=== PATIENT | male | born 1940 | race Caucasian/White ===

== ENCOUNTER 2020-11-21 15:42 | Outpatient (REF) | payer MEDICARE, SELFPAY ==
[2020-11-21 21:55] LABS: Abs Immature Grans 0.02 10^3/uL (0.0-0.06); Absolute Basophil Count 0.14 10^3/uL (0.0-0.2); Absolute Eosinophil Count 0.35 10^3/uL (0.0-0.7); Absolute Lymphocyte Count 2.13 10^3/uL (1.2-3.4); Absolute Monocyte Count 0.61 10^3/uL (0.1-0.8); Absolute Neutrophil Count 3.57 10^3/uL (1.2-6.7); Basophils % 2.1; Eosinophils % 5.1; HCT 44.8 % (40.0-50.0); HGB 14.8 g/dL (13.5-17.5); Immature Grans % 0.3; Lymphocytes % 31.2; MCH 32.2 pg (27.0-33.0); MCV 97.6 fL (80-95); MPV 10.8 fL (8.0-11.0); Monocytes % 8.9; Neutrophils % 52.4; Nucleated RBC 0 %; Platelet Count 204 10^3/uL (130-400); RBC 4.59 10^6/uL (4.36-5.78); RDW 12.4 % (11.8-14.1); WBC 6.82 10^3/uL (4.4-10.8)
[2020-11-21 22:16] LABS: ALT 22 U/L (16-63); AST 14 U/L (15-37); Albumin 3.6 g/dL (3.4-5.0); Alkaline Phosphatase 81 U/L (46-116); BUN 22 mg/dL (7-18); Bilirubin, Total 0.9 mg/dL (0.2-1.0); Calcium 8.4 mg/dL (8.5-10.1); Chloride 107 mmol/L (98-107); Estimated GFR 58.26 (mL/min/1.73m2); Glucose 77 mg/dL (74-106); Potassium 4.6 mmol/L (3.5-5.1); Sodium 143 mmol/L (136-145); TSH (W/Ref FT4) 4.85 uIU/mL (0.36-3.74); Total Protein 6.6 g/dL (6.4-8.2)
[2020-11-21 22:39] LABS: FREE T4 0.91 ng/dL (0.76-1.46)
== END 2020-11-21 16:02 ==
LOC: NCHCN 15:42
PROVIDERS: PCP Specialist/Technologist Athletic Trainer; Visit Provider Family Medicine
DX: I48.0 Paroxysmal atrial fibrillation (principal); R60.0 Localized edema
CPT/HCPCS: 80053; 83735; 84439; 84443; 85025

== ENCOUNTER 2021-08-03 08:10 | Emergency (ER) | payer MEDICARE, SELFPAY ==
[2021-08-03] VITALS (34 sets, daily range): BP systolic 110–175; BP diastolic 70–92; PULSE 45–72; RESP 14–27; TEMP 36.1–36.2; O2SAT 94–100
--- NOTE | 2021-08-03 08:00 | RT.EKG_ITS ---
APPROVED REPORT Exam: Resting ECG Reason for Exam: dizziness Patient Location: E HR:58 bpm ECG Measurements Heart Rate 58 AXIS FL [id number] P [id number] QRSd 150 QRS 90 QT 468 T 0 QTc 462 Conclusion Atrial fibrillation...V-rate 48- 67, Right bundle branch block
--- NOTE | 2021-08-03 08:30 | W.ED.GENAD ---
Discharge Plan Disposition Patient Disposition: HOME Condition: Fair Discharge Details Clinical Impression: Dizziness, Carotid occlusion, right, Headache Primary Care Provider: Macario Martinez ED Provider: Vera Leger Home Meds and New Rx's Prescriptions: New atorvastatin 20 mg tablet 20 mg PO DAILY Qty: 20 RF: 0 meclizine 25 mg tablet 25 mg PO TID PRN (Reason: dizziness) Qty: 10 RF: 0 Continued atenolol 25 MG tablet 12.5 mg PO DAILY RF: 0 Xarelto 20 mg Tablet 20 mg PO DAILY RF: 0 Discharge Instructions Instructions: Dizziness (ED), General Headache (ED) Additional Instructions: Your imaging and labs here are significant for blockage of your right carotid artery. However, this is likely an old finding. I am concerned that your dizziness may be associated with vertigo. Alternatively, this could also be something more serious and will be further evaluated with your MRI/MRV as we discussed. This test should be completed on Thursday or Thursday. Our care management team will reach out to you regarding follow-up and testing. You may also touch base with Dr. Larios about this. Please take the atorvastatin daily as prescribed to help prevent this from worsening. This was advised by neurology team at [facility]. Please also continue with your Xarelto. Also prescribe meclizine if you have any recurrence of your dizziness. Please encourage hydration. Please avoid strenuous activity. Please return immediately with any new or worsening symptoms. Referrals: Fransisco Larios MD [ [facility] STAFF PHYSICIAN] - Discharge Data Discharge Date/Time-TO BE ENTERED AT DEPARTURE: 08/03/21 13:08 Medical Decision Making Patient is a pleasant 81-year-old gentleman presenting today with chief complaint of dizziness. He reports that 1 week ago he jumped over a brook and had a sudden onset of symptoms. His description sounds vertiginous with spinning, nausea. Denies any headache or neck pain. No fevers or chills. States that since then these have been intermittent brought on by movement of his head. Particularly worse this morning. States this woke him from sleep. He states that he was [place] by EMS when leaving the house and that this seemed to resolve his symptoms. He is not currently endorsing any dizziness. Nausea has resolved. Denies any fevers or chills. He denies any chest pain but indicates the far left lateral chest wall is area that he did have brief discomfort. He attributed this to muscle spasm as he is working on prior with. No shortness of breath. Past medical history is pertinent for CVA, hypertension. Patient was recently diagnosed with atrial fibrillation and is on Xarelto. No new medications or change in dosing recently. On exam, patient appears nontoxic. Neurologic exam is normal. Unable to elicit any nystagmus. However, patient is currently asymptomatic and symptoms are not elicited with movement. Patient is irregularly irregular. No murmurs rubs or gallops appreciated. Concerned at this time for posterior circulation stroke. Also considered electrolyte abnoramlity, metabolic derangement, vertebral artery dissection vs. other. Will obtain CTA, labs and continue to monitor. Labs reviewed. No leukocytosis. Stable H&H. No significant abnormality on CMP. TSH slightly low at 5.28. Will obtain free T4. Patient just back from [place]. Concerned that when the patient laid flat he developed a severe frontal headache and felt lightheaded. This did resolve after a few minutes being more upright. CT reviewed by radiologist: FINDINGS: Brain: There is an area of encephalomalacia in the right frontal lobe indicating remote infarct. There is no evidence for large acute cortical infarct. A tiny calcified granuloma is present in the high right frontal lobe. No intracranial hemorrhage or extraaxial collection is identified. There is no significant intracranial mass effect. Cerebral ventricles: The ventricles and sulci are mildly prominent, in concordance with mild global atrophy. Paranasal sinuses: There is moderate chronic mucosal disease of the right maxillary sinus, with calcifications suggesting inspissation. Minor chronic disease involves the left maxillary sinus. The right frontal sinus is with mild chronic mucosal disease as well. Mastoid air cells: Visualized mastoid air cells are well aerated. Bones/joints: Unremarkable. No acute fracture. Soft tissues: Unremarkable. IMPRESSION: No CT evidence for acute intracranial abnormality Will obtain CTA head/neck. CT reviewed by radiologist: COMPARISON: CT HEAD WO 08/03/2021 9:10 AM FINDINGS: ANTERIOR CIRCULATION: Right internal carotid artery: Occluded. Right middle cerebral artery: Normal. Right anterior cerebral artery: Normal. Left internal carotid artery: Calcification is present but there is no occlusion or significant stenosis. Left middle cerebral artery: Normal. Left anterior cerebral artery: Normal. POSTERIOR CIRCULATION: Right vertebral artery: Normal. Left vertebral artery: Normal. Basilar artery: Normal. Right posterior cerebral artery: Normal. Left posterior cerebral artery: Normal. Brain: Known/previously described chronic right frontal encephalomalacia due to remote infarct. No abnormal brain parenchymal or leptomeningeal contrast enhancement. Cerebral ventricles: No ventriculomegaly. Bones/joints: Intact. No suspicious lesions. Mastoid air cells: Clear. Soft tissues: Unremarkable. Paranasal sinuses: Right maxillary sinus mucosal thickening with some intermixed calcifications. Right maxillary mucoperiosteal calcification. Mild right frontal mucosal thickening without fluid level. IMPRESSION: 1. Right ICA occlusion. 2. Known old right frontal infarct. 3. Right maxillary sinusitis with chronic features. COMPARISON: CT HEAD WO 08/03/2021 9:10 AM FINDINGS: Limitations: Suboptimal angiographic imaging quality. This significantly limits the ability to detect dissection and limits the ability to assess degree of stenosis. Right common carotid artery: No occlusion or significant stenosis. Atherosclerosis approaching the carotid bulb. Right internal carotid artery: Severe atherosclerosis at the carotid bulb and extending into the origins of the right internal carotid artery which appears occluded and its course cannot be identified in the right neck. Right external carotid artery: Normal. Left common carotid artery: No occlusion. Atherosclerosis approaching the carotid bulb. Left internal carotid artery: Carotid bulb calcification and calcification in the proximal vessel with there is stenosis estimated to not exceed 50%. Left external carotid artery: Normal. Right vertebral artery: Focal calcification at the C4/5 level without significant stenosis. Left vertebral artery: Normal. Left vertebral artery: Normal. Brachiocephalic artery: Mild calcification without significant stenosis. Normal caliber. Subclavian arteries: Mild calcification without significant stenosis. Normal caliber. Aorta: Mild calcification without significant stenosis. Normal caliber. Veins: Unremarkable Brain: The incompletely viewed brain is normal. Mastoid air cells: Clear. Thyroid: Normal. Lymph nodes: No adenopathy. Soft tissues: No masses. Bones/joints: No fracture or concerning stenosis. IMPRESSION: 1. 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 2. Left carotid atherosclerosis with approximately 50% stenosis at the origins of the left ICA. Discussed these findings with patient and . Will consult with vascular surgery at [facility]. Images pushed to their facility. Consulted with Dr. Marcus. She recommended 20mg Atorvastatin. Advised that this has likely been occluded for years. Recommended MR/MRV next week with PCP. Advised that once this is back, they should again be consulted. Patient ambulated in the room and did well. He and I did discuss the concern about the possiblility of fall. We discuss in patient admission and patient declines. He would like to be at home to move more. Feels that movement ultimately helps with his symptoms. His will be home. She will monitor him. Advised to return with any new/worsening symptoms. Will start on statin. He will continue with anticoagulation. All of their questions and concerns were addressed, they are in agreement with this plan. Have asked care management to help arrange for f/u for urgent MRI/MRV. HPI General Mode of arrival: EMS. Date/Time Provider Initiated Documentation: 08/03/21 09:19. Limitations to Documentation: no limitations. Information obtained by: patient, EMS and RN notes reviewed. History of Present Illness 81 year old M presents to the emergency department with the chief complaint of dizziness, described as severe and similar to prior episodes, with intensity rated at 1 (no pain). Quality is described as other (dizziness), and is localized to the head. Patient reports no radiation. Patient started experiencing this week(s) (1) and it has been intermittent. Immobilization improves symptom(s), Movement worsens symptoms . Patient notes nausea/vomiting (nausea with the dizziness, no vomiting. Resolved with zofran via EMS); denies chest pain, cough, diaphoresis, fever/chills, headaches, loss of appetite, rash, seizure, shortness of breath, syncope and weakness. Patient did receive the following treatments prior to arrival, other (zofran) Related Data Home Medications Medication Instructions Recorded Confirmed atenolol 12.5 mg PO DAILY 06/25/18 08/03/21 Xarelto 20 mg PO DAILY 08/03/21 08/03/21 atorvastatin 20 mg PO DAILY #20 tab 08/03/21 meclizine 25 mg PO TID PRN #10 tab 08/03/21 Previous Rx's Medication Instructions Recorded atorvastatin 20 mg PO DAILY #20 tab 08/03/21 meclizine 25 mg PO TID PRN #10 tab 08/03/21 Allergies Allergy/AdvReac Type Severity Reaction Status Date / Time erythromycin base Allergy Mild Unverified 08/03/21 09:41 ibuprofen Allergy Mild Unverified 08/03/21 09:41 Sulfa (Sulfonamide Allergy Mild Unverified 08/03/21 09:41 Antibiotics) General Stated Complaint: Dizzy/Sync SIMÓN: 3 Review of Systems Constitutional Constitutional: Reports as per HPI, Denies chills, Denies fever(s), Denies frequent falls, Denies headache(s) and Denies weakness Eyes Eyes: Reports as per HPI, Denies blurry vision and Denies change in vision ENT Ears, Nose, Mouth, and Throat: Reports vertigo, Reports dizziness, Denies headache(s) and Denies neck pain Cardiovascular Cardiovascular: Reports as per HPI, Denies chest pain, Denies lightheadedness, Denies radiating jaw, neck or arm pain, Denies dyspnea and Denies dyspnea on exertion Respiratory Respiratory: Reports as per HPI, Denies chest congestion, Denies cough, Denies dyspnea, Denies dyspnea on exertion, Denies stridor and Denies wheezing Gastrointestinal Gastrointestinal: Reports as per HPI, Denies abdominal pain, Denies change in bowel habits, Denies nausea and Denies vomiting Musculoskeletal Musculoskeletal: Reports as per HPI, Denies back pain, Denies myalgias, Denies muscle cramps, Denies neck pain and Denies numbness Integumentary/Breasts Skin/Breast: Reports as per HPI and Denies rash Neurologic Neurologic: Reports as per HPI, Denies abnormal movements, Denies abnormal speech, Denies behavioral changes, Denies confusion, Reports vertigo, Reports dizziness, Denies frequent falls, Denies headache(s), Denies localized weakness, Denies numbness, Denies sensory deficit and Denies weakness Psychiatric Psychiatric: Denies behavioral changes and Denies confusion Allergic/Immunologic Allergic/Immunologic: Denies wheezing [facility] Medical History Abdominal bloating CVA (cerebral vascular accident) HTN (hypertension) Low back pain Popliteal cyst left Social History Smoking/Tobacco Use Status: Never Smoking risk assessment performed?: Yes Alcohol Intake: never Drug use: Never Substance use type: does not use Do you feel safe at home: Yes Do you feel safe in your relationship?: Yes Exam Const General: cooperative, healthy appearing, comfortable, no acute distress, well developed and well groomed Nutritional Appearance: average body habitus and well nourished Orientation: alert, awake and oriented x3 [facility] Head: normal to inspection, no palpable skull fracture, normocephalic and atraumatic Ears: hearing grossly normal bilaterally, external ears normal and TM's normal bilaterally General nose exam: external nose normal Mouth: oral mucosae normal and moist mucous membranes Throat: posterior oropharynx normal Eyes General: appearance normal, both eyes and all related structures Alignment and Position: alignment normal Periorbital: periorbital findings normal Eyelids: eyelids normal Sclera: sclerae normal Cornea: corneas normal Pupils: PERRL EOM: EOM intact bilaterally Neck Neck: normal visual inspection, full ROM, no lymphadenopathy and no meningeal signs Resp Effort & Inspection: normal respiratory effort, able to speak in complete sentences and no respiratory distress Auscultation: clear to auscultation bilaterally, no rales, no rhonchi and no wheezes Cardio Rate: regular rate Rhythm: abnormal rhythm irregularly irregular Heart Sounds: S1 normal and S2 normal GI Inspection: normal to inspection and non-distended Palpation: soft, no guarding and nontender Percussion: normal to percussion Auscultation: normal bowel sounds Skin General skin exam: no rashes or lesions noted Neuro General: patient alert, patient awake and patient oriented x3 Cranial Nerves: CN's II-XI intact bilaterally, PERRL, accommodation normal, EOM intact bilaterally, no nystagmus, facial strength normal, tongue midline, hearing normal, able to rotate head bilaterally and able to elevate shoulders bilaterally Cognition: normal cognition Speech: speech normal Motor: muscle tone normal throughout, strength 5/5 throughout, no pronator drift, no movement abnormalities noted and no fasciculations Sensory Exam: no sensory deficits noted Coordination: [id number] test normal and [id number] test normal Extrem General: normal to inspection, capillary refill normal, no pedal edema and no calf tenderness Psych Appearance: grossly normal and well kempt Mental Status: mental status grossly normal Speech and Movement: speech and movement normal Course Vital Signs Vital signs: Vital Signs Temperature 36.1 C L 08/03/21 08:14 Pulse 53 L 08/03/21 08:14 Respiratory Rate 16 08/03/21 08:14 Blood Pressure 175/77 H 08/03/21 08:14 Pulse Oximetry 94 08/03/21 08:14 Temperature 36.1 C L 08/03/21 08:14 Temperature Source Temporal Artery Scan 08/03/21 08:14 Pulse 53 L 08/03/21 08:14 Respiratory Rate 16 08/03/21 08:14 Blood Pressure 175/77 H 08/03/21 08:14 Blood Pressure Position Supine 08/03/21 08:14 Pulse Oximetry 94 08/03/21 08:14 Oxygen Delivery Method Room Air 08/03/21 08:14 Oxygen Flow Rate 0 08/03/21 08:14 Pain Level 0 08/03/21 08:14
[2021-08-03 08:45] LABS: Abs Immature Grans 0.03 10^3/uL (0.0-0.06); Absolute Basophil Count 0.12 10^3/uL (0.0-0.2); Absolute Eosinophil Count 0.44 10^3/uL (0.0-0.7); Absolute Lymphocyte Count 1.61 10^3/uL (1.2-3.4); Absolute Monocyte Count 0.56 10^3/uL (0.1-0.8); Absolute Neutrophil Count 3.63 10^3/uL (1.2-6.7); Basophils % 1.9; Eosinophils % 6.9; Immature Grans % 0.5; Lymphocytes % 25.2; MCH 31.9 pg (27.0-33.0); MCHC 33.3 % (32.0-36.0); MCV 95.7 fL (80-95); MPV 9.8 fL (8.0-11.0); Monocytes % 8.8; Neutrophils % 56.7; Nucleated RBC 0 %; Platelet Count 211 10^3/uL (130-400); RDW 12.2 % (11.8-14.1); WBC 6.39 10^3/uL (4.4-10.8)
[2021-08-03] MEDS: Meclizine 25 MG TAB PO (08:57)
[2021-08-03 09:10] LABS: ALT 20 U/L (16-63); AST 18 U/L (15-37); Albumin 3.5 g/dL (3.4-5.0); Alkaline Phosphatase 80 U/L (46-116); BUN 23 mg/dL (7-18); Bilirubin, Total 1.3 mg/dL (0.2-1.0); CREATININE 1.2 mg/dL (0.70-1.30); Calcium 8.7 mg/dL (8.5-10.1); Chloride 106 mmol/L (98-107); Estimated GFR 58.11 (mL/min/1.73m2); Glucose 100 mg/dL (74-106); Magnesium 2.2 mg/dL (1.8-2.4); Potassium 4.6 mmol/L (3.5-5.1); Sodium 142 mmol/L (136-145); TSH 5.28 uIU/mL (0.36-3.74); Troponin I < 0.05 ng/mL (<0.06)
--- NOTE | 2021-08-03 09:15 | DI.CT_ITS ---
Exam(s) CT HEAD WO EXAM: CT HEAD WO CLINICAL HISTORY: dizziness. TECHNIQUE: Imaging Protocol: Axial computed tomography images with coronal and sagittal reformatted images were created and reviewed COMPARISON: CT HEAD WITHOUT CONTRAST from 08/03/2012 CT HEAD WITHOUT CONTRAST from 08/03/2012 FINDINGS: Ventricles and Extra axial spaces: Normal in size and morphology for the patient's age. Hemorrhage: None. Cerebral parenchyma: There again seen findings of an old right frontal infarct. No acute territorial infarct. There are areas of decreased attenuation in the white matter most consistent with small ve ssel ischemic disease. Midline shift: None. Brainstem/Cerebellum: Normal. Calvarium: Normal. Visualized Paranasal sinuses/Mastoids: There is mucosal thickening in the right maxillary sinus with thickening of the sinus tony consistent with chronic sinusitis. There is mild mucosal thickening in the right maxillary sinus, a few ethmoid air cells and the frontal sinuses. The remaining visualize d paranasal sinuses and mastoid air cells are clear. Soft Tissues: Unremarkable. IMPRESSION: No acute intracranial process. RADIATION DOSE DELIVERED: 855.51mGy.cm Total DLP DATA REPOSITORY: All CT scans at this facility are submitted to the National Radiology Data Registry (NRDR) Dose Index Registry (DIR) with the [employer] (ACR). RADIATION OPTIMIZATION: All CT scans at this facility use at least one of these dose optimization te chniques: automated exposure control; mA and/or kV adjustment per patient size (includes targeted exa ms where dose is matched to clinical indication); or iterative reconstruction.
[2021-08-03] MEDS: ACETAMINOPHEN 1,000 MG/100 ML BTL 400 MG IVPB (09:27)
[2021-08-03] MEDS: Normal Saline 500 ML IV (09:28)
[2021-08-03 10:05] LABS: FREE T4 0.98 ng/dL (0.76-1.46)
--- NOTE | 2021-08-03 10:08 | DI.VRAD_ITS ---
PROCEDURE INFORMATION: Exam: CT Head Without Contrast Exam date and time: 08/03/2021 8:30 AM Age: 81 years old Clinical indication: Dizziness TECHNIQUE: Imaging protocol: Computed tomography of the head without contrast. Radiation optimization: All CT scans at this facility use at least one of these dose optimization techniques: automated exposure control; mA and/or kV adjustment per patient size (includes targeted exams where dose is matched to clinical indication); or iterative reconstruction. COMPARISON: No relevant prior studies available. FINDINGS: Brain: There is an area of encephalomalacia in the right frontal lobe indicating remote infarct. There is no evidence for large acute cortical infarct. A tiny calcified granuloma is present in the high right frontal lobe. No intracranial hemorrhage or extraaxial collection is identified. There is no significant intracranial mass effect. Cerebral ventricles: The ventricles and sulci are mildly prominent, in concordance with mild global atrophy. Paranasal sinuses: There is moderate chronic mucosal disease of the right maxillary sinus, with calcifications suggesting inspissation. Minor chronic disease involves the left maxillary sinus. The right frontal sinus is with mild chronic mucosal disease as well. Mastoid air cells: Visualized mastoid air cells are well aerated. Bones/joints: Unremarkable. No acute fracture. Soft tissues: Unremarkable. IMPRESSION: No CT evidence for acute intracranial abnormality. Dictated and Authenticated by: Jay Rivas MD. Ordering:MARY LOU Gamez MD
--- NOTE | 2021-08-03 10:10 | DI.CT_ITS ---
Exam(s) CT BRAIN NECK CTA EXAM: CT BRAIN NECK CTA CLINICAL HISTORY: CARMONA, dizziness, posterior neck pain. TECHNIQUE: Imaging Protocol: Axial CT angiography was performed with multi-slice acquisition and mu lti-planar and/or 3D reconstructions. CONTRAST MATERIAL: Intravenous: Omnipaque 350 Contrast volume:85 mL COMPARISON: CT CT HEAD WO from 08/03/[address] HEAD WO from 08/03/2021 FINDINGS: CT Head w: Ventricles and Extra axial spaces: Normal in size and morphology for the patient's age. Hemorrhage: None. Cerebral parenchyma: There is an old left frontal infarct. There are areas of decreased attenuation in the white matter consistent with small vessel ischemic disease. No acute territorial infarct. Midline shift: None. Brainstem/Cerebellum: Normal. Calvarium: Normal. Visualized Paranasal sinuses/Mastoids: Chronic sinus disease is present particularly in the right max illary sinus. No acute sinusitis. Soft Tissues: Unremarkable. Enhancement: Unremarkable. Suboptimal examination. Poor opacification of the cervical and intracranial arteries. This limits t he ability to detect dissection and assess degree of stenosis. The examination is limited due to patient motion artifact. CTA Neck W: Common Carotid: Right: No occlusion or significant stenosis. There is significant calcification in the distal common carotid and the carotid bulb. Left: No occlusion or significant stenosis. External Carotid: Right: No occlusion or significant stenosis. Left: No occlusion or significant stenosis. Internal Carotid: Right: There is occlusion of the right internal carotid artery at its origin and including the entir ety of the intracranial portion. Left: There is atherosclerosis at the origin of the left internal carotid artery with stenosis less than 50 percent. Vertebral Artery: Right: No dissection, occlusion or significant stenosis. Left: No dissection, occlusion or significant stenosis. Lung Apices: Normal. Bones: Moderate degenerative changes in the cervical spine. The findings are most marked at C5-C6. Soft Tissues: Normal. CTA Brain W: Internal Carotid Arteries: Petrous: Occluded. Cavernous: Occluded. Atherosclerosis. Cerebral: Occluded. Anterior Cerebral Arteries: Right: No aneurysm, occlusion or significant stenosis. Left: No aneurysm, occlusion or significant stenosis. Middle Cerebral Arteries: Right: No aneurysm, occlusion or significant stenosis. Left: No aneurysm, occlusion or significant stenosis. Posterior cerebral Arteries: Right: No aneurysm, occlusion or significant stenosis. Left: No aneurysm, occlusion or significant stenosis. Vertebral Arteries: Right: No aneurysm, occlusion or significant stenosis. Left: No aneurysm, occlusion or significant stenosis. Basilar Artery: No aneurysm, occlusion or significant stenosis. IMPRESSION: 1. Suboptimal examination due to both patient motion artifact and suboptimal imaging technique. 2. Occlusion of the right internal carotid artery on the CTA of the brain. 3. No abnormal enhancement on the postcontrast CT scan of the brain. 4. Occlusion of the right internal carotid artery on the CTA of the neck. RADIATION DOSE DELIVERED: 1,410.9mGy.cm Total DLP DATA REPOSITORY: All CT scans at this facility are submitted to the National Radiology Data Registry (NRDR) Dose Index Registry (DIR) with the [employer] (ACR). RADIATION OPTIMIZATION: All CT scans at this facility use at least one of these dose optimization te chniques: automated exposure control; mA and/or kV adjustment per patient size (includes targeted exa ms where dose is matched to clinical indication); or iterative reconstruction.
[2021-08-03] MEDS: Omnipaque 350 MG/ML 100 ML BTL IJ (10:13)
--- NOTE | 2021-08-03 11:05 | DI.VRAD_ITS ---
PROCEDURE INFORMATION: Exam: CT Angiography Head With Contrast, Arteriography Exam date and time: 08/03/2021 9:21 AM Age: 81 years old Clinical indication: Patient HX: Headache, dizziness, posterior neck pain TECHNIQUE: Imaging protocol: Computed tomography angiography of the head with contrast. Exam focused on the arteries. 3D rendering (Not supervised by radiologist): MIP and/or 3D reconstructed images were created by the technologist. Radiation optimization: All CT scans at this facility use at least one of these dose optimization techniques: automated exposure control; mA and/or kV adjustment per patient size (includes targeted exams where dose is matched to clinical indication); or iterative reconstruction. Contrast material: [id number]; Contrast volume: 85 ml; Contrast route: INTRAVENOUS (IV); COMPARISON: CT HEAD WO 08/03/2021 9:10 AM FINDINGS: ANTERIOR CIRCULATION: Right internal carotid artery: Occluded. Right middle cerebral artery: Normal. Right anterior cerebral artery: Normal. Left internal carotid artery: Calcification is present but there is no occlusion or significant stenosis. Left middle cerebral artery: Normal. Left anterior cerebral artery: Normal. POSTERIOR CIRCULATION: Right vertebral artery: Normal. Left vertebral artery: Normal. Basilar artery: Normal. Right posterior cerebral artery: Normal. Left posterior cerebral artery: Normal. Brain: Known/previously described chronic right frontal encephalomalacia due to remote infarct. No abnormal brain parenchymal or leptomeningeal contrast enhancement. Cerebral ventricles: No ventriculomegaly. Bones/joints: Intact. No suspicious lesions. Mastoid air cells: Clear. Soft tissues: Unremarkable. Paranasal sinuses: Right maxillary sinus mucosal thickening with some intermixed calcifications. Right maxillary mucoperiosteal calcification. Mild right frontal mucosal thickening without fluid level. IMPRESSION: 1. Right ICA occlusion. 2. Known old right frontal infarct. 3. Right maxillary sinusitis with chronic features. PROCEDURE INFORMATION: Exam: CT Angiography Neck With Contrast Exam date and time: 08/03/2021 9:21 AM Age: 81 years old Clinical indication: Patient HX: Headache, dizziness, posterior neck pain TECHNIQUE: Imaging protocol: Computed tomography angiography of the neck with contrast. 3D rendering (Not supervised by radiologist): MIP and/or 3D reconstructed images were created by the technologist. Radiation optimization: All CT scans at this facility use at least one of these dose optimization techniques: automated exposure control; mA and/or kV adjustment per patient size (includes targeted exams where dose is matched to clinical indication); or iterative reconstruction. Contrast material: [id number]; Contrast volume: 85 ml; Contrast route: INTRAVENOUS (IV); COMPARISON: CT HEAD WO 08/03/2021 9:10 AM FINDINGS: Limitations: Suboptimal angiographic imaging quality. This significantly limits the ability to detect dissection and limits the ability to assess degree of stenosis. Right common carotid artery: No occlusion or significant stenosis. Atherosclerosis approaching the carotid bulb. Right internal carotid artery: Severe atherosclerosis at the carotid bulb and extending into the origins of the right internal carotid artery which appears occluded and its course cannot be identified in the right neck. Right external carotid artery: Normal. Left common carotid artery: No occlusion. Atherosclerosis approaching the carotid bulb. Left internal carotid artery: Carotid bulb calcification and calcification in the proximal vessel with there is stenosis estimated to not exceed 50%. Left external carotid artery: Normal. Right vertebral artery: Focal calcification at the C4/5 level without significant stenosis. Left vertebral artery: Normal. Left vertebral artery: Normal. Brachiocephalic artery: Mild calcification without significant stenosis. Normal caliber. Subclavian arteries: Mild calcification without significant stenosis. Normal caliber. Aorta: Mild calcification without significant stenosis. Normal caliber. Veins: Unremarkable Brain: The incompletely viewed brain is normal. Mastoid air cells: Clear. Thyroid: Normal. Lymph nodes: No adenopathy. Soft tissues: No masses. Bones/joints: No fracture or concerning stenosis. IMPRESSION: 1. 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 2. Left carotid atherosclerosis with approximately 50% stenosis at the origins of the left ICA. REFERENCES: NASCET CRITERIA. The degree of internal carotid artery stenosis is based on NASCET criteria. Normal is no stenosis. Mild is less than 50% stenosis. Moderate is 50-69% stenosis. Severe is 70% to 99% stenosis. Total occlusion is no detectable patent lumen. Dictated and Authenticated by: Willie Delong MD. Ordering:MARY LOU Gamez MD
--- NOTE | 2021-08-03 12:44 | NUR.NOTE ---
referral to forn mri/mrv needs to be done thursday or thursday per [facility] [place]
== END 2021-08-03 13:08 | disposition home or self-care (01) ==
PROVIDERS: Emergency Provider Physician Assistant; PCP Specialist/Technologist Athletic Trainer
DX: I65.21 Occlusion and stenosis of right carotid artery (principal); I10 Essential (primary) hypertension; R42 Dizziness and giddiness; R51.9 Headache, unspecified
CPT/HCPCS: 36415; 70496; 70498; 80053; 93005; 96361; 96374; 99285; 70450; 83735; 84439; 84443; 84484; 85025; 93010; 99284; J0131; J3490

== ENCOUNTER 2021-12-11 15:50 | Outpatient (REF) | payer MEDICARE, SELFPAY ==
[2021-12-11 15:03] LABS: HGB 15.3 g/dL (13.5-17.5); MCH 31.5 pg (27.0-33.0); MCHC 33.3 % (32.0-36.0); MCV 94.8 fL (80-95); MPV 10.6 fL (8.0-11.0); Platelet Count 232 10^3/uL (130-400); RBC 4.85 10^6/uL (4.36-5.78); RDW 12.4 % (11.8-14.1); RDW-SD 43.4 fL; WBC 7.64 10^3/uL (4.4-10.8)
[2021-12-11 15:44] LABS: Anion Gap 6.7 mmol/L (3-11); BUN 26 mg/dL (7-18); CO2 29.3 mmol/L (21.0-32.0); CREATININE 1.3 mg/dL (0.70-1.30); Calcium 8.9 mg/dL (8.5-10.1); Chloride 107 mmol/L (98-107); Estimated GFR 52.98 (mL/min/1.73m2); Glucose 76 mg/dL (74-106); Potassium 4.7 mmol/L (3.5-5.1); Sodium 143 mmol/L (136-145)
== END 2021-12-11 15:51 | disposition home or self-care (01) ==
LOC: NCHCN 15:50
PROVIDERS: PCP Specialist/Technologist Athletic Trainer; Visit Provider Family Medicine
DX: I10 Essential (primary) hypertension (principal); I48.0 Paroxysmal atrial fibrillation
CPT/HCPCS: 80048; 85027

== ENCOUNTER 2022-06-16 12:06 | Outpatient (REF) | payer MEDICARE, SELFPAY ==
[2022-06-16 15:31] LABS: HCT 43.7 % (40.0-50.0); HGB 14.3 g/dL (13.5-17.5); MCH 32.1 pg (27.0-33.0); MCHC 32.7 % (32.0-36.0); MCV 98 fL (80-95); MPV 10.5 fL (8.0-11.0); Platelet Count 238 10^3/uL (130-400); RBC 4.46 10^6/uL (4.36-5.78); RDW 12.8 % (11.8-14.1); WBC 7.13 10^3/uL (4.4-10.8)
[2022-06-16 15:42] LABS: ALT 21 U/L (16-63); AST 23 U/L (15-37); Albumin 3.4 g/dL (3.4-5.0); Alkaline Phosphatase 76 U/L (46-116); Anion Gap 4.7 mmol/L (3-11); BUN 28 mg/dL (7-18); Bilirubin, Total 0.8 mg/dL (0.2-1.0); CO2 29.3 mmol/L (21.0-32.0); CREATININE 1.4 mg/dL (0.70-1.30); Calcium 8.7 mg/dL (8.5-10.1); Chloride 107 mmol/L (98-107); Estimated GFR 48.52 (mL/min/1.73m2); Glucose 89 mg/dL (74-106); Potassium 4.8 mmol/L (3.5-5.1); Sodium 141 mmol/L (136-145); Total Protein 6.9 g/dL (6.4-8.2)
== END 2022-06-16 12:07 | disposition home or self-care (01) ==
LOC: NCHCN 12:06
PROVIDERS: PCP Specialist/Technologist Athletic Trainer; Visit Provider Family Medicine
DX: I10 Essential (primary) hypertension (principal); I48.91 Unspecified atrial fibrillation
CPT/HCPCS: 80053; 85027

== ENCOUNTER 2022-12-22 15:20 | Outpatient (REF) | payer MEDICARE, SELFPAY ==
[2022-12-22 21:13] LABS: Anion Gap 6.7 mmol/L (3-11); BUN 26 mg/dL (7-18); CO2 30.3 mmol/L (21.0-32.0); CREATININE 1.3 mg/dL (0.70-1.30); Calcium 8.7 mg/dL (8.5-10.1); Chloride 107 mmol/L (98-107); Estimated GFR 54.85 (mL/min/1.73m2); Glucose 102 mg/dL (74-106); Potassium 4.4 mmol/L (3.5-5.1); Sodium 144 mmol/L (136-145)
== END 2022-12-22 15:21 | disposition home or self-care (01) ==
LOC: NCHCN 15:20
PROVIDERS: PCP Specialist/Technologist Athletic Trainer; Visit Provider Family Medicine
DX: I10 Essential (primary) hypertension (principal); I48.0 Paroxysmal atrial fibrillation
CPT/HCPCS: 80048

== ENCOUNTER 2023-03-10 10:51 | Outpatient (CLI) | payer MEDICARE, SELFPAY ==
--- NOTE | 2023-03-10 10:00 | DI.RAD_ITS ---
Exam(s) XR FOOT RT COMPLETE EXAM: XR FOOT RT COMPLETE CLINICAL HISTORY: R 2nd toe likely gout,m10.9. TECHNIQUE: 2D digital imaging was performed of the right foot. Three images were obtained. AP, obl ique and lateral views were obtained. COMPARISON: No exams were available for comparison FINDINGS: BONES: No acute fracture is present. At the 1st MTP joint there is soft tissue swelling present. On the oblique view there do appear to be erosions at the lateral medial aspect of the base of the proxi mal phalanx and the head of the 1st metatarsal. There is a hallux valgus deformity. The joint space s otherwise well maintained. Well-circumscribed cyst is seen in the head of the proximal phalanx of the 2nd toe. JOINTS: No dislocation present. SOFT TISSUE: Vascular calcifications are present. IMPRESSION: Erosion seen at the 1st MTP joint with associated soft tissue swelling. An inflammatory arthritis sh ould be considered. Infection cannot be excluded. Please correlate clinically. DATA REPOSITORY: RADIATION DOSE DELIVERED:
== END 2023-03-10 11:11 ==
LOC: DI 10:52
PROVIDERS: PCP Family Medicine; Visit Provider Podiatrist Foot & Ankle Surgery
DX: M10.9 Gout, unspecified (principal)
CPT/HCPCS: 73630

== ENCOUNTER 2023-03-10 10:54 | Outpatient (CLI) | payer MEDICARE, SELFPAY ==
[2023-03-10 10:56] LABS: Anion Gap 3.7 mmol/L (3-11); BUN 25 mg/dL (7-18); CO2 31.3 mmol/L (21.0-32.0); CREATININE 1.3 mg/dL (0.70-1.30); Calcium 8.8 mg/dL (8.5-10.1); Chloride 108 mmol/L (98-107); Estimated GFR 54.85 (mL/min/1.73m2); Glucose 76 mg/dL (74-106); Potassium 4.9 mmol/L (3.5-5.1); Sodium 143 mmol/L (136-145); Uric Acid 7.3 mg/dL (3.5-7.2)
== END 2023-03-10 10:55 | disposition home or self-care (01) ==
LOC: LBO 10:55
PROVIDERS: PCP Family Medicine; Visit Provider Podiatrist Foot & Ankle Surgery
DX: M10.9 Gout, unspecified (principal); I10 Essential (primary) hypertension
CPT/HCPCS: 36415; 80048; 73630; 84550

== ENCOUNTER 2023-07-21 13:17 | Outpatient (REF) | payer MEDICARE, SELFPAY ==
[2023-07-21 15:43] LABS: HCT 41.9 % (40.0-50.0); MCH 32.3 pg (27.0-33.0); MCHC 33.4 % (32.0-36.0); MCV 97 fL (80-95); MPV 9.5 fL (8.0-11.0); Platelet Count 204 10^3/uL (130-400); RBC 4.33 10^6/uL (4.36-5.78); RDW 13.1 % (11.8-14.1); RDW-SD 46.9 fL; WBC 5.38 10^3/uL (4.4-10.8)
[2023-07-21 16:51] LABS: Anion Gap 6.5 mmol/L (3-11); BUN 23 mg/dL (7-18); CO2 29.5 mmol/L (21.0-32.0); CREATININE 1.3 mg/dL (0.70-1.30); Calcium 8.4 mg/dL (8.5-10.1); Chloride 105 mmol/L (98-107); Estimated GFR 54.51 (mL/min/1.73m2); Glucose 81 mg/dL (74-106); Potassium 4.6 mmol/L (3.5-5.1); Sodium 141 mmol/L (136-145); Uric Acid 6.9 mg/dL (3.5-7.2)
== END 2023-07-21 13:18 | disposition home or self-care (01) ==
LOC: NCHCN 13:17
PROVIDERS: PCP Family Medicine; Visit Provider Family Medicine
DX: I10 Essential (primary) hypertension (principal); I48.0 Paroxysmal atrial fibrillation; M10.9 Gout, unspecified
CPT/HCPCS: 80048; 85027; 84550

== ENCOUNTER 2023-12-22 16:25 | Outpatient (REF) | payer MEDICARE, SELFPAY ==
[2023-12-22 16:24] LABS: Abs Immature Grans 0.02 10^3/uL (0.0-0.06); Absolute Basophil Count 0.08 10^3/uL (0.0-0.2); Absolute Eosinophil Count 0.44 10^3/uL (0.0-0.7); Absolute Lymphocyte Count 2.16 10^3/uL (1.2-3.4); Absolute Monocyte Count 0.78 10^3/uL (0.1-0.8); Absolute Neutrophil Count 3.77 10^3/uL (1.2-6.7); Basophils % 1.1; Eosinophils % 6.1; HCT 45.1 % (40.0-50.0); HGB 15.1 g/dL (13.5-17.5); Immature Grans % 0.3; Lymphocytes % 29.8; MCH 31.7 pg (27.0-33.0); MCHC 33.5 % (32.0-36.0); MCV 95 fL (80-95); Monocytes % 10.8; Neutrophils % 51.9; Platelet Count 255 10^3/uL (130-400); RBC 4.77 10^6/uL (4.36-5.78); RDW 12.7 % (11.8-14.1); RDW-SD 44.2 fL; WBC 7.25 10^3/uL (4.4-10.8)
[2023-12-22 16:43] LABS: ALT 19 U/L (16-63); AST 17 U/L (15-37); Albumin 3.6 g/dL (3.4-5.0); Alkaline Phosphatase 92 U/L (46-116); Anion Gap 8.3 mmol/L (3-11); BUN 24 mg/dL (7-18); Bilirubin, Total 0.9 mg/dL (0.2-1.0); CO2 29.7 mmol/L (21.0-32.0); CREATININE 1.3 mg/dL (0.70-1.30); Calcium 8.9 mg/dL (8.5-10.1); Chloride 105 mmol/L (98-107); Estimated GFR 54.51 (mL/min/1.73m2); Glucose 70 mg/dL (74-106); Potassium 4.6 mmol/L (3.5-5.1); Sodium 143 mmol/L (136-145); Total Protein 6.7 g/dL (6.4-8.2); Uric Acid 7.5 mg/dL (3.5-7.2)
== END 2023-12-22 16:26 | disposition home or self-care (01) ==
LOC: NCHCN 16:25
PROVIDERS: PCP Family Medicine; Visit Provider Family Medicine
DX: I10 Essential (primary) hypertension (principal); M10.9 Gout, unspecified
CPT/HCPCS: 80053; 84550; 85025

== ENCOUNTER 2024-02-27 07:11 | Emergency (ER) | payer MEDICARE, SELFPAY ==
[2024-02-27] VITALS (27 sets, daily range): BP systolic 126–206; BP diastolic 60–121; PULSE 45–93; RESP 15–32; TEMP 36.2; O2SAT 97–100
--- NOTE | 2024-02-27 07:00 | RT.EKG_ITS ---
APPROVED REPORT Exam: Resting ECG Reason for Exam: ?cva Patient Location: E HR:69 bpm ECG Measurements Heart Rate 69 AXIS MD [id number] P [id number] QRSd 152 QRS 94 QT 468 T 12 QTc 501 Conclusion Atrial fibrillation...V-rate 52- 84, irreg A-activity Right bundle branch block...QRSd>120, terminal axis(90,270)
--- NOTE | 2024-02-27 07:15 | DI.CT_ITS ---
Exam(s) CT HEAD - STROKE PROTOCOL EXAM: CT HEAD - STROKE PROTOCOL CLINICAL HISTORY: ?cva. TECHNIQUE: Imaging Protocol: Axial computed tomography images with coronal and sagittal reformatted images were created and reviewed COMPARISON: CT CT BRAIN NECK CTA from 08/03/2021 FINDINGS: There are no skull fractures. There is a mucoperiosteal thickening in the right maxillary sinus also some intra sinus calcification within the thickened mucosa consistent with significant chronicity. N o acute fluid level noted in the right maxillary sinus. In the opposite-left maxillary sinus there i s a small posteriorly located focal mucosal thickening either small cyst or polyp. Sphenoid and fron [place] sinuses are clear. Ethmoidal air cells clear. There is an area of encephalomalacia in the right frontal region again noted, similar to 08/03/2021.. Probably related to prior infarct no significant mass effect at this level. There is no evidence of intracranial hemorrhage, mass effect, or shift of midline structures. There are no extra-axial fluid collections. The ventricles are not enlarged or shifted and there is no blo od within the ventricular system nor within the basal cisterns. IMPRESSION: No acute intracranial findings on this noninfused CT scan of the brain. Stable right frontal lobe en cephalomalacia which is most probably related to prior infarct. No acute infarcts evident. If clini jhonathan indicated follow-up MRI with diffusion imaging can be performed. RADIATION DOSE DELIVERED: Total DLP DATA REPOSITORY: All CT scans at this facility are submitted to the National Radiology Data Registry (NRDR) Dose Index Registry (DIR) with the [employer] (ACR). RADIATION OPTIMIZATION: All CT scans at this facility use at least one of these dose optimization te chniques: automated exposure control; mA and/or kV adjustment per patient size (includes targeted exa ms where dose is matched to clinical indication); or iterative reconstruction.
--- NOTE | 2024-02-27 07:15 | DI.CT_ITS ---
Exam(s) CT BRAIN NECK CTA EXAM: CT BRAIN NECK CTA CLINICAL HISTORY: cva. TECHNIQUE: Imaging Protocol: Axial CT angiography was performed with multi-slice acquisition and mu lti-planar and/or 3D reconstructions. CONTRAST MATERIAL: Intravenous: Omnipaque 350 Contrast volume:structured data in ml COMPARISON: CT CT BRAIN NECK CTA from 08/03/2021 FINDINGS: CTA Neck W: Aortic arch anatomy: The aortic arch anatomy is conventional and there is no significant stenosis at the origin of the great vessels off of the aortic arch. No intimal flap evident. Anterior circulation: Both common carotid arteries ascend with normal luminal diameters. The right internal carotid artery is again noted to be occluded at its origin and not reconstituted u ntil the intracranial supraclinoid level. On the opposite-left side there is partially calcified plaque at the carotid bulb and proximal left I CA with approximately 40-50 percent stenosis.. Above this level the left internal carotid artery in the neck is patent although somewhat tortuous just prior to entering the skull base-left carotid opal l (where it is demonstrated to be patent). Posterior circulation: Both vertebral arteries originate in conventional fashion off of the subclavian arteries and there is no obvious stenosis at the origin of the vertebral arteries. Both vertebral arteries exhibit normal luminal diameters within the foramen transversarium. No evidence of intraluminal thrombus nor dissection Both vertebral arteries contribute to the formation of the basilar artery at the skull base. CTA Brain W: Anterior circulation: The right internal carotid artery is chronically occluded from its origin in the neck all the way thr ough the skull base and cavernous sinuses with reconstitution of flow in the supraclinoid aspect. . the left internal carotid artery is patent in the skull base and cavernous sinus. Supraclinoid asp ect is patent. Both A1 segments are patent as are the anterior cerebral arteries and there is no ane urysm at the level of the anterior communicating artery. Both middle cerebral arteries are patent with no evidence of significant stenosis nor intraluminal th rombus. There also no aneurysms of these vessels. Posterior circulation: The basilar artery ascends in the midline. No significant stenosis. Distally it terminates as paten t bilateral posterior cerebral arteries. There is no evidence of aneurysm at the tip of the basilar artery nor elsewhere in the [id number] is. CT BRAIN: Right frontal lobe encephalomalacia again noted, unchanged from previous and most probably related to prior infarct from occlusion of the right internal carotid artery. There is no evidence of intracranial hemorrhage, mass effect, or shift of midline structures. There are no extra-axial fluid collections. Ventricles are not enlarged or shifted. There are no ring enh ancing lesions in the brain and no abnormal meningeal enhancement. IMPRESSION: 1. Chronically occluded right internal carotid artery which is occluded from its origin to supraclino id aspect. There is evidence of prior infarct in the right frontal lobe. No acute intracranial find ings. 2. There is approximately 50 percent stenosis from partially calcified plaque at the left carotid bi furcation-proximal left ICA. 3. Both vertebral arteries are patent in the neck and both contribute to the formation of the basila r artery at the skull base. 4. With the exception of the right internal carotid artery the intracranial arteries are patent witho ut significant stenosis nor dissection. No aneurysms evident. 5. Encephalomalacia in the right frontal lobe again noted. RADIATION DOSE DELIVERED: Total DLP DATA REPOSITORY: All CT scans at this facility are submitted to the National Radiology Data Registry (NRDR) Dose Index Registry (DIR) with the [employer] (ACR). RADIATION OPTIMIZATION: All CT scans at this facility use at least one of these dose optimization te chniques: automated exposure control; mA and/or kV adjustment per patient size (includes targeted exa ms where dose is matched to clinical indication); or iterative reconstruction.
--- NOTE | 2024-02-27 07:24 | ED.GENADUL_ITS ---
Discharge Plan Disposition Patient Disposition: Home Condition: Stable Discharge Details Clinical Impression: Altered mental status Primary Care Provider: Fransisco Larios ED Provider: Jay Krueger Home Meds and New Rx's Prescriptions: New aspirin 81 mg tablet,chewable 81 mg PO DAILY Qty: 30 0RF meclizine 25 mg tablet 25 mg PO TID PRN (Reason: dizziness) Qty: 30 0RF atorvastatin 40 mg tablet 40 mg PO DAILY Qty: 30 0RF Continued atenolol 25 MG tablet 12.5 mg PO DAILY Xarelto 20 mg Tablet 20 mg PO DAILY Discharge Instructions Additional Instructions: Your blood work and imaging did not show any new concerning findings. You do have a chronic occlusion in your carotid artery in your neck. Neurologist at [facility] recommend you start on aspirin and a cholesterol- lowering med. Follow-up with your primary care provider within 1 to 2 weeks, we will have to continue the prescriptions if they feel you should continue it. If you feel more ill, have severe worsening weakness or new symptoms such as difficulty breathing or chest pain return to the emergency department HPI General Mode of arrival: wheelchair . Date/Time Provider Initiated Documentation: 02/27/24 07:12 . Limitations to Documentation: altered mental status . Information obtained by: family . History of Present Illness 83 year old M presents to the emergency department with the chief complaint of ?cva, d escribed as moderate, Patient started experiencing this minute(s) (30) and it has been constant. No relieving factors improve symptom(s), No exacerbating factors reported . Related Data Home Medications Medication Instructions Recorded Confirmed atenolol 25 mg tablet 12.5 mg PO DAILY 06/25/18 02/27/24 rivaroxaban 20 mg tablet (Xarelto) 20 mg PO DAILY 08/03/21 02/27/24 aspirin 81 mg chewable tablet 81 mg PO DAILY #30 tabs 02/27/24 atorvastatin 40 mg tablet 40 mg PO DAILY #30 tabs 02/27/24 meclizine 25 mg tablet 25 mg PO TID PRN dizziness #30 tabs 02/27/24 Previous Rx's Medication Instructions Recorded aspirin 81 mg chewable tablet 81 mg PO DAILY #30 tabs 02/27/24 atorvastatin 40 mg tablet 40 mg PO DAILY #30 tabs 02/27/24 meclizine 25 mg tablet 25 mg PO TID PRN dizziness #30 tabs 02/27/24 Allergies Allergy/AdvReac Type Severity Reaction Status Date / Time erythromycin base Allergy Mild Unverified 08/03/21 09:41 ibuprofen Allergy Mild Unverified 08/03/21 09:41 Sulfa (Sulfonamide Allergy Mild Unverified 08/03/21 09:41 Antibiotics) General Stated Complaint: CVA/TIA SIMÓN: 2 Review of Systems Unobtainable due to mental status Exam Const Orientation: alert HENWV Head: normal to inspection Ears: external ears normal General nose exam: external nose normal Mouth: moist mucous membranes Eyes General: appearance normal, both eyes and all related structures Neck Neck: normal visual inspection Resp Effort & Inspection: normal respiratory effort Cardio Rate: regular rate Skin General skin exam: no rashes or lesions noted Neuro General: patient alert Cranial Nerves: PERRL Extrem General: normal to inspection Course Vital Signs Vital signs: Vital Signs Temperature 36.2 C L 02/27/24 07:12 Pulse 93 H 02/27/24 07:12 Respiratory Rate 27 H 02/27/24 07:12 Blood Pressure 206/100 H 02/27/24 07:12 Pulse Oximetry 100 02/27/24 07:12 Temperature 36.2 C L 02/27/24 07:12 Temperature Source Temporal Artery Scan 02/27/24 07:12 Pulse 93 H 02/27/24 07:12 Respiratory Rate 27 H 02/27/24 07:12 Blood Pressure 206/100 H 02/27/24 07:12 Blood Pressure Position Sitting 02/27/24 07:12 Pulse Oximetry 100 02/27/24 07:12 Oxygen Delivery Method Room Air 02/27/24 07:12 Oxygen Flow Rate 0 02/27/24 07:12 Medical Decision Making 83-year-old male with a history of A-fib on Xarelto, says had a stroke years ago with no residual deficits, comes in with concern for stroke. says he was in his usual state of health and woke up feeling well today. Attended to their fire and around 7:00 came in and gave the a hug and went and sat down. She went and checked on him a few minutes later and he was mute with left facial droop so brought him here for an evaluation. He is alert and has his eyes open but does not answer questions and is aphasic. His eyes are fixed to the left, no signs of trauma to the head, he has no purposeful movement of his extremities in all hit the bed when testing drift. Unable to follow commands. says he takes his Xarelto at night and took a dose last night. Total NIH of 22 on my exam, suspect CVA we will proceed with labs and CT head and CTA of the neck and brain. Patient's coags are elevated, and given he had Xarelto within the past 48 hours is not a lytic candidate, pending radiology reads of the CT I do not see any obvious hemorrhage. Patient's imaging without acute findings, has chronic occlusions of the right internal carotid artery. Patient remarkably at this time alert and I did x 4 and has absolutely no deficits on exam. Patient remembers tending to the fire and going to sit down that he said he felt like his vision went blurry and then he does not remember anything after that until he has been here for 20 to 25 minutes. We did try standing the patient but he got dizzy which he states happens frequently. His blood pressure did not decrease and his heart rate did not increase during this. Will give a dose of meclizine, delta troponin negat cordell. [place] [facility] feels significantly better after meclizine and remained stable, still no deficits on exam. Discussed case with neurologist at [facility] Dr Cifuentes who r eviewed the case and patient's history, he did question of this could be Raoul's paralysis given rapid improvement in symptoms. Do not feel strongly about starting on antiepileptic but did recommended aspirin and atorvastatin and can follow-up with a neurologist at some point. Discussed results with patient and given he feels significantly better declines to stay for an MRI Thursday which I feel is reasonable. He is stable for discharge, advised to follow-up with his PCP and return precautions given NIH Stroke Scale/Score (NIHSS) from [email or web address] on 02/27/2024 All calculations should be rechecked by clinician prior to use RESULT SUMMARY: 22 points NIH Stroke Scale INPUTS: 1A: Level of consciousness ?> 0 = Alert; keenly responsive 1B: Ask month and age ?> 2 = Aphasic 1C: 'Blink eyes' & 'squeeze hands' ?> 2 = Performs 0 tasks 2: Horizontal extraocular movements ?> 1 = Partial gaze palsy: can be overcome 3: Visual randall ?> 0 = No visual loss 4: Facial palsy ?> 3 = Unilateral complete paralysis (upper/lower face) 5A: Left arm motor drift ?> 3 = No effort against gravity 5B: Right arm motor drift ?> 3 = No effort against gravity 6A: Left leg motor drift ?> 0 = No drift for 5 seconds 6B: Right leg motor drift ?> 3 = No effort against gravity 7: Limb Ataxia ?> 0 = Does not understand 8: Sensation ?> 0 = Normal; no sensory loss 9: Language/aphasia ?> 3 = Mute/global aphasia: no usable speech/auditory comprehension 10: Dysarthria ?> 2 = Mute/anarthric 11: Extinction/inattention ?> 0 = No abnormality Differential Diagnosis Differential Diagnosis: CVA, hemorrhage Medical Records Medical records reviewed: Yes I reviewed the patient's medical records. Imaging Data Radiologic Study: Attestation: I personally reviewed and interpreted this imaging study as follows: Imaging: CT Scan Radiologist's impression: PROCEDURE INFORMATION: Exam: CT Head Without Contrast Exam date and time: 02/27/2024 7:27 AM Age: 83 years old Clinical indication: Stroke-like symptoms; Other: ? CVA TECHNIQUE: Imaging protocol: Computed tomography of the head without contrast. Radiation optimization: All CT scans at this facility use at least one of these dose optimization techniques: automated exposure control; mA and/or kV adjustment per patient size (includes targeted exams where dose is matched to clinical indication); or iterative reconstruction. Other technique: STROKE PROTOCOL was implemented. COMPARISON: CT BRAIN NECK CTA 08/03/2021 9:42 AM FINDINGS: Brain: Redemonstrated encephalomalacia in the right frontal lobe. No intracranial hemorrhage. No acute infarct. No extra-axial fluid collection. Diffuse cerebral atrophy, consistent with patient's age. Cerebral ventricles: No ventriculomegaly. Paranasal sinuses: Findings of chronic right maxillary sinusitis. Mastoid air cells: Visualized mastoid air cells are well aerated. Bones/joints: Unremarkable. No acute fracture. Soft tissues: Unremarkable. IMPRESSION: No acute intracranial abnormality. Radiologic Study #2: Attestation: I personally reviewed and interpreted this imaging study as follows: Imaging: CT Scan Radiologist's impression: IMPRESSION: 1. No acute findings. 2. Chronically occluded right internal carotid artery. 3. Right frontal lobe encephalomalacia. IMPRESSION: 1. Chronically occluded right internal carotid artery. 2. Mild stenosis of the left internal carotid artery at the carotid bulb Radiologic Study #3: Attestation: I personally reviewed and interpreted this imaging study as follows: Imaging: X-Ray Radiologist's impression: IMPRESSION: 1. Chronically occluded right internal carotid artery. 2. Mild stenosis of the left internal carotid artery at the carotid bulb ECG Data Attestation: I personally reviewed and interpreted this ECG (s) as follows: Prior ECG tracings: available for review Interpretation: A-fib, rate of 69, right bundle branch block, no significant changes from prior, no STEMI Quality:SDOH Health Related Social Needs: No Data to Display PFSH All Active Problems (Updated 02/27/24 @ 12:47 by Jay Krueger MD) Altered mental status (Acute) Gout (Chronic) Osteoarthritis (Chronic) Peripheral edema (Acute) Atrial fibrillation (Chronic) Dizziness (Acute) Carotid occlusion, right (Acute) Headache (Acute) Medical History (Updated 02/27/24 @ 12:47 by Jay Krueger MD) Subclinical hypothyroidism CVA (cerebral vascular accident) with residual deficits HTN (hypertension) Abdominal bloating Popliteal cyst left Low back pain Social History Smoking/Tobacco Use Status: Never Smoking risk assessment performed?: Yes Alcohol Intake: never Drug use: Never Substance use type: does not use Do you feel safe at home: Yes Do you feel safe in your relationship?: Yes
[2024-02-27 07:26] LABS: Abs Immature Grans 0.02 10^3/uL (0.0-0.06); Absolute Basophil Count 0.08 10^3/uL (0.0-0.2); Absolute Eosinophil Count 0.47 10^3/uL (0.0-0.7); Absolute Lymphocyte Count 2.51 10^3/uL (1.2-3.4); Absolute Monocyte Count 0.66 10^3/uL (0.1-0.8); Absolute Neutrophil Count 3.45 10^3/uL (1.2-6.7); Basophils % 1.1; Eosinophils % 6.5; HCT 43.8 % (40.0-50.0); HGB 15.1 g/dL (13.5-17.5); Immature Grans % 0.3; Lymphocytes % 34.9; MCH 32.6 pg (27.0-33.0); MCHC 34.5 % (32.0-36.0); MCV 95 fL (80-95); MPV 9.6 fL (8.0-11.0); Monocytes % 9.2; Platelet Count 246 10^3/uL (130-400); RBC 4.63 10^6/uL (4.36-5.78); RDW 12.7 % (11.8-14.1); RDW-SD 43.8 fL; WBC 7.19 10^3/uL (4.4-10.8)
[2024-02-27 07:38] LABS: INR 1.5 (0.9-1.1); Prothrombin Time 14.6 sec (9.1-11.1)
[2024-02-27 07:42] LABS: ALT 16 U/L (16-63); AST 16 U/L (15-37); Albumin 3.5 g/dL (3.4-5.0); Alkaline Phosphatase 90 U/L (46-116); Anion Gap 8.7 mmol/L (3-11); BUN 24 mg/dL (7-18); Bilirubin, Total 1.1 mg/dL (0.2-1.0); CO2 28.3 mmol/L (21.0-32.0); CREATININE 1.3 mg/dL (0.70-1.30); Calcium 8.8 mg/dL (8.5-10.1); Chloride 105 mmol/L (98-107); Estimated GFR 54.51 (mL/min/1.73m2); Glucose 96 mg/dL (74-106); Magnesium 2.2 mg/dL (1.8-2.4); Potassium 4.2 mmol/L (3.5-5.1); Sodium 142 mmol/L (136-145); Total Protein 6.8 g/dL (6.4-8.2); Troponin I < 50 ng/L (< or =60)
--- NOTE | 2024-02-27 07:45 | DI.RAD_ITS ---
Exam(s) XR PORTABLE CHEST AP EXAM: XR PORTABLE CHEST AP CLINICAL HISTORY: cva. TECHNIQUE: 2D digital imaging was performed. COMPARISON: No exams were available for comparison FINDINGS: Single AP portable view. There is cardiomegaly. The mediastinum is not widened. Elevation left hemidiaphragm noted. Some platelike atelectasis above the elevated left hemidiaphragm . No obvious confluent infiltrates nor pleural effusions evident on this portable AP view. IMPRESSION: Cardiomegaly. Elevated left hemidiaphragm. No obvious confluent infiltrates. No obvious pulmonary edema DATA REPOSITORY: RADIATION DOSE DELIVERED:
[2024-02-27] MEDS: Normal Saline - Diluent 50 ML VIAL IJ (07:56)
[2024-02-27] MEDS: Omnipaque 350 MG/ML 100 ML BTL 85 ML IJ (07:56)
--- NOTE | 2024-02-27 07:56 | DI.VRAD_ITS ---
PROCEDURE INFORMATION: Exam: CT Head Without Contrast Exam date and time: 02/27/2024 7:27 AM Age: 83 years old Clinical indication: Stroke-like symptoms; Other: ? CVA TECHNIQUE: Imaging protocol: Computed tomography of the head without contrast. Radiation optimization: All CT scans at this facility use at least one of these dose optimization techniques: automated exposure control; mA and/or kV adjustment per patient size (includes targeted exams where dose is matched to clinical indication); or iterative reconstruction. Other technique: STROKE PROTOCOL was implemented. COMPARISON: CT BRAIN NECK CTA 08/03/2021 9:42 AM FINDINGS: Brain: Redemonstrated encephalomalacia in the right frontal lobe. No intracranial hemorrhage. No acute infarct. No extra-axial fluid collection. Diffuse cerebral atrophy, consistent with patient's age. Cerebral ventricles: No ventriculomegaly. Paranasal sinuses: Findings of chronic right maxillary sinusitis. Mastoid air cells: Visualized mastoid air cells are well aerated. Bones/joints: Unremarkable. No acute fracture. Soft tissues: Unremarkable. IMPRESSION: No acute intracranial abnormality. ASSESSMENT: ASPECTS ([place] Stroke Program Early CT Score) is 10. Dictated and Authenticated by: Thea Eid MD. Ordering:SIMONA Thompson MD
[2024-02-27] MEDS: Normal Saline Flush 10 ML SYR IVP (07:58)
[2024-02-27 08:03] LABS: Bilirubin Negative (Negative); Blood Small (Negative); Clarity Clear (Clear); Glucose Negative (Negative); Ketones Trace mg/dL (Negative); Leukocyte Esterase Negative (Negative); Nitrite Negative (Negative); Specific Gravity 1.015 (1.005-1.025)
--- NOTE | 2024-02-27 08:07 | DI.VRAD_ITS ---
PROCEDURE INFORMATION: Exam: CTA Head With Contrast, Arteriography Exam date and time: 02/27/2024 7:34 AM Age: 83 years old Clinical indication: Stroke-like symptoms; Other: ? CVA TECHNIQUE: Imaging protocol: Computed tomographic angiography of the head with contrast. Exam focused on the arteries. 3D rendering (Not supervised by radiologist): MIP and/or 3D reconstructed images were created by the technologist. Contrast material: OMNI 350; Contrast volume: 85 ml; Contrast route: INTRAVENOUS (IV); COMPARISON: CT HEAD - STROKE PROTOCOL 02/27/2024 7:27 AM FINDINGS: ANTERIOR CIRCULATION: Right internal carotid artery: Redemonstrated occlusion of the right internal carotid artery. Right middle cerebral artery: No occlusion or significant stenosis. No aneurysm. Right anterior cerebral artery: No occlusion or significant stenosis. No aneurysm. Left internal carotid artery: Intracranial segment is patent with no significant stenosis. No aneurysm. Left middle cerebral artery: No occlusion or significant stenosis. No aneurysm. Left anterior cerebral artery: No occlusion or significant stenosis. No aneurysm. POSTERIOR CIRCULATION: Right vertebral artery: No occlusion or significant stenosis. No aneurysm. Left vertebral artery: No occlusion or significant stenosis. No aneurysm. Basilar artery: No occlusion or significant stenosis. No aneurysm. Right posterior cerebral artery: No occlusion or significant stenosis. No aneurysm. Left posterior cerebral artery: No occlusion or significant stenosis. No aneurysm. Brain: Right frontal lobe encephalomalacia. Diffuse cerebral atrophy, consistent with patient's age. No intracranial hemorrhage. No acute infarct. No extra-axial fluid collection. Cerebral ventricles: No ventriculomegaly. Paranasal sinuses: Findings of chronic right maxillary sinusitis. Bones/joints: Unremarkable. No acute fracture. Soft tissues: Unremarkable. IMPRESSION: 1. No acute findings. 2. Chronically occluded right internal carotid artery. 3. Right frontal lobe encephalomalacia. PROCEDURE INFORMATION: Exam: CTA Neck With Contrast Exam date and time: 02/27/2024 7:34 AM Age: 83 years old Clinical indication: Stroke-like symptoms; Other: ? CVA TECHNIQUE: Imaging protocol: Computed tomographic angiography of the neck with contrast. Exam focused on the cervical segments of the vasculature. 3D rendering (Not supervised by radiologist): MIP and/or 3D reconstructed images were created by the technologist. Radiation optimization: All CT scans at this facility use at least one of these dose optimization techniques: automated exposure control; mA and/or kV adjustment per patient size (includes targeted exams where dose is matched to clinical indication); or iterative reconstruction. Contrast material: OMNI 350; Contrast volume: 85 ml; Contrast route: INTRAVENOUS (IV); COMPARISON: CT BRAIN NECK CTA 08/03/2021 9:42 AM FINDINGS: Limitations: Limited by motion artifact. Right common carotid artery: No stenosis. No dissection or occlusion. Right internal carotid artery: Chronically occluded. Right external carotid artery: No occlusion or stenosis of the origin. Left common carotid artery: Mild calcified plaque at the left carotid bulb. No occlusion or significant stenosis. Left internal carotid artery: No stenosis of the extracranial segment. No dissection or occlusion. Left external carotid artery: No occlusion or stenosis of the origin. Right vertebral artery: No stenosis. No dissection or occlusion. Left vertebral artery: No stenosis. No dissection or occlusion. Soft tissues: Normal. No significant soft tissue swelling. Bones/joints: No acute fracture. Multilevel spondylosis. No high-grade spinal canal or neural foraminal stenosis. Degenerative changes of the left acromioclavicular joint. IMPRESSION: 1. Chronically occluded right internal carotid artery. 2. Mild stenosis of the left internal carotid artery at the carotid bulb. REFERENCES: NASCET CRITERIA. The degree of stenosis in the cervical segment of the internal carotid artery is based on NASCET criteria. Normal is no stenosis. Mild is less than 50% stenosis. Moderate is 50-69% stenosis. Severe is 70% to 99% stenosis. Total occlusion is no detectable patent lumen. Dictated and Authenticated by: Thea Eid MD. Ordering:SIMONA Thompson MD
[2024-02-27 08:09] LABS: Bacteria Negative HPF (Negative); C & S Indicated? No; Casts Negative LPF (Negative); Crystals Negative HPF (Negative); Epithelial Cells Rare HPF (Negative); Mucus Negative (Negative); WBC Negative HPF (0-5)
--- NOTE | 2024-02-27 08:25 | DI.VRAD_ITS ---
PROCEDURE INFORMATION: Exam: XR Chest Exam date and time: 02/27/2024 8:06 AM Age: 83 years old Clinical indication: Other: CVA TECHNIQUE: Imaging protocol: Radiologic exam of the chest. Views: 1 view. COMPARISON: CT BRAIN NECK CTA 02/27/2024 7:34 AM FINDINGS: Lungs: Low lung volumes with bronchovascular crowding. Linear left basilar opacities, likely atelectasis. Pleural spaces: No sizable pleural effusion or pneumothorax. Heart/Mediastinum: Cardiomegaly. Diaphragm: Elevation of the left hemidiaphragm. Bones/joints: Unremarkable. IMPRESSION: 1. Cardiomegaly. 2. No focal consolidation. Dictated and Authenticated by: Thea Eid MD. Ordering:SIMONA Thompson MD
[2024-02-27 10:41] LABS: Troponin I < 50 ng/L (< or =60)
[2024-02-27] MEDS: Meclizine 25 MG TAB PO (11:38)
== END 2024-02-27 13:08 | disposition home or self-care (01) ==
PROVIDERS: Emergency Provider Emergency Medicine; PCP Family Medicine
DX: R41.82 Altered mental status, unspecified (principal); G93.89 Other specified disorders of brain; I65.22 Occlusion and stenosis of left carotid artery; I45.19 Other right bundle-branch block; I48.91 Unspecified atrial fibrillation; I10 Essential (primary) hypertension; Z86.73 Personal history of transient ischemic attack (TIA), and cerebral infarction without residual deficits; Z79.01 Long term (current) use of anticoagulants
CPT/HCPCS: 36415; 70496; 70498; 80053; 82962; 93005; 99285; 70450; 71045; 81003; 81015; 83735; 84484; 85025; 85610; 85730; 93010; 99284; J3490

== ENCOUNTER 2024-03-23 13:14 | Outpatient (REF) | payer MEDICARE, SELFPAY ==
[2024-03-23 14:35] LABS: Abs Immature Grans 0.02 10^3/uL (0.0-0.06); Absolute Monocyte Count 0.67 10^3/uL (0.1-0.8); Absolute Neutrophil Count 3.65 10^3/uL (1.2-6.7); Basophils % 1.5 %; Eosinophils % 7.6 %; HCT 41.9 % (40.0-50.0); HGB 14.3 g/dL (13.5-17.5); Immature Grans % 0.3 %; Lymphocytes % 24.5 %; MCHC 34.1 % (32.0-36.0); MCV 97 fL (80-95); MPV 10.3 fL (8.0-11.0); Monocytes % 10.2 %; Neutrophils % 55.9 %; Platelet Count 225 10^3/uL (130-400); RBC 4.33 10^6/uL (4.36-5.78); RDW 12.4 % (11.8-14.1); RDW-SD 44.1 fL; WBC 6.54 10^3/uL (4.4-10.8)
[2024-03-23 15:09] LABS: ALT 24 U/L (16-63); AST 15 U/L (15-37); Albumin 3.5 g/dL (3.4-5.0); Alkaline Phosphatase 104 U/L (46-116); Anion Gap 7.3 mmol/L (3-11); BUN 20 mg/dL (7-18); Bilirubin, Total 1.3 mg/dL (0.2-1.0); CO2 29.7 mmol/L (21.0-32.0); CREATININE 1.3 mg/dL (0.70-1.30); Calcium 8.7 mg/dL (8.5-10.1); Chloride 106 mmol/L (98-107); Estimated GFR 54.51 (mL/min/1.73m2); Glucose 92 mg/dL (74-106); LDL CHOLESTEROL 44 mg/dL (<100); Potassium 4.7 mmol/L (3.5-5.1); Sodium 143 mmol/L (136-145); Total Protein 6.3 g/dL (6.4-8.2)
== END 2024-03-23 13:15 | disposition home or self-care (01) ==
LOC: NCHCN 13:14
PROVIDERS: PCP Family Medicine; Visit Provider Family Medicine
DX: I10 Essential (primary) hypertension (principal); Z86.73 Personal history of transient ischemic attack (TIA), and cerebral infarction without residual deficits
CPT/HCPCS: 80053; 83721; 85025

== ENCOUNTER 2024-12-07 16:19 | Outpatient (CLI) | payer MEDICARE, SELFPAY ==
--- NOTE | 2024-12-07 15:23 | DI.RAD_ITS ---
Exam(s) XR CHEST 2V PA LATERAL EXAM: XR CHEST 2V PA LATERAL CLINICAL HISTORY: Cough R05.9 TECHNIQUE: 2D digital imaging was performed. Two views. COMPARISON: CR,XR XR PORTABLE CHEST AP from 02/27/2024 FINDINGS: HEART: Grossly enlarged. Aorta: Not dilated. PULMONARY VASCULATURE: Normal. MEDIASTINUM: Unremarkable. LUNGS: Clear. PLEURAL SPACE: No pleural effusion or pneumothorax. BONE:Unremarkable for age. SOFT TISSUES: Elevation of the left diaphragm again noted. IMPRESSION: No acute abnormality. DATA REPOSITORY: RADIATION DOSE DELIVERED:
== END 2024-12-07 16:39 ==
LOC: DI 16:20
PROVIDERS: PCP Family Medicine; Visit Provider Physician Assistant
DX: R05.9 Cough, unspecified (principal)
CPT/HCPCS: 71046

== ENCOUNTER 2025-01-04 10:36 | Outpatient (REF) | payer MEDICARE, SELFPAY ==
[2024-12-29 21:39] LABS: Abs Immature Grans 0.02 10^3/uL (0.0-0.06); Absolute Basophil Count 0.06 10^3/uL (0.0-0.2); Absolute Eosinophil Count 0.37 10^3/uL (0.0-0.7); Absolute Lymphocyte Count 1.21 10^3/uL (1.2-3.4); Absolute Monocyte Count 1.05 10^3/uL (0.1-0.8); Absolute Neutrophil Count 3.31 10^3/uL (1.2-6.7); Eosinophils % 6.1 %; HCT 35.4 % (40.0-50.0); HGB 11.7 g/dL (13.5-17.5); Immature Grans % 0.3 %; Lymphocytes % 20.1 %; MCH 32.5 pg (27.0-33.0); MCHC 33.1 % (32.0-36.0); MCV 98 fL (80-95); Monocytes % 17.4 %; Neutrophils % 55.1 %; Platelet Count 244 10^3/uL (130-400); RDW-SD 46.2 fL; WBC 6.02 10^3/uL (4.4-10.8)
[2024-12-29 21:49] LABS: ALT 29 U/L (16-63); AST 21 U/L (15-37); Albumin 2.8 g/dL (3.4-5.0); Alkaline Phosphatase 117 U/L (46-116); Anion Gap 2.6 mmol/L (3-11); BUN 18 mg/dL (7-18); Bilirubin, Total 0.64 mg/dL (0.2-1.0); CO2 32.4 mmol/L (21.0-32.0); CREATININE 1.3 mg/dL (0.70-1.30); Calcium 8.1 mg/dL (8.5-10.1); Chloride 106 mmol/L (98-107); Estimated GFR 54.17 (mL/min/1.73m2); Glucose 105 mg/dL (74-106); Potassium 4.8 mmol/L (3.5-5.1); Sodium 141 mmol/L (136-145); Total Protein 5.9 g/dL (6.4-8.2)
== END 2025-01-04 10:37 | disposition home or self-care (01) ==
LOC: NCHCN 10:36
PROVIDERS: PCP Family Medicine; Visit Provider Family Medicine
DX: I48.91 Unspecified atrial fibrillation (principal)
CPT/HCPCS: 80053; 85025

== ENCOUNTER 2025-01-10 14:44 | Outpatient (CLI) | payer MEDICARE, SELFPAY ==
[2025-01-10 09:54] LABS: HCT 37.9 % (40.0-50.0); HGB 12.6 g/dL (13.5-17.5); MCH 32.6 pg (27.0-33.0); MCHC 33.2 % (32.0-36.0); MCV 98 fL (80-95); MPV 9.5 fL (8.0-11.0); Platelet Count 228 10^3/uL (130-400); RBC 3.86 10^6/uL (4.36-5.78); RDW-SD 50.4 fL; WBC 6.73 10^3/uL (4.4-10.8)
[2025-01-10 10:04] LABS: Bilirubin Negative (Negative); Blood Negative (Negative); Clarity Clear (Clear); Glucose Negative (Negative); Ketones Negative (Negative); Leukocyte Esterase Negative (Negative); Nitrite Negative (Negative); Specific Gravity 1.025 (1.005-1.025); Urobilinogen 0.2 mg/dL (Up to 0.2); pH 5.5 (5-8)
[2025-01-10 13:20] LABS: Iron 88 ug/dL (65-175); Total Iron Binding Capacity 215 ug/dL (250-450); Transferrin Sat 41 % (20-55)
[2025-01-10 13:42] LABS: Ferritin 154 ng/mL (26-388); Folate 10.4 ng/mL (8.6-20.0); Vitamin B12 237 pg/mL (193-986)
== END 2025-01-10 14:45 | disposition home or self-care (01) ==
LOC: LBO 14:45
PROVIDERS: PCP Family Medicine; Visit Provider Family Medicine
DX: D64.9 Anemia, unspecified (principal)
CPT/HCPCS: 36415; 85027; 81003; 82607; 82728; 82746; 83540; 83550

== ENCOUNTER 2025-04-26 16:58 | Outpatient (REF) | payer MEDICARE, SELFPAY ==
[2025-04-26 21:20] LABS: Abs Immature Grans 0.02 10^3/uL (0.0-0.06); Absolute Basophil Count 0.09 10^3/uL (0.0-0.2); Absolute Eosinophil Count 0.58 10^3/uL (0.0-0.7); Absolute Lymphocyte Count 1.25 10^3/uL (1.2-3.4); Absolute Monocyte Count 0.58 10^3/uL (0.1-0.8); Absolute Neutrophil Count 4.44 10^3/uL (1.2-6.7); Basophils % 1.3 %; Eosinophils % 8.3 %; HCT 26.2 % (40.0-50.0); HGB 8.5 g/dL (13.5-17.5); Immature Grans % 0.3 %; MCH 33.7 pg (27.0-33.0); MCHC 32.4 % (32.0-36.0); MCV 104 fL (80-95); MPV 10.6 fL (8.0-11.0); Monocytes % 8.3 %; Neutrophils % 63.8 %; Platelet Count 203 10^3/uL (130-400); RBC 2.52 10^6/uL (4.36-5.78); RDW 14.3 % (11.8-14.1); RDW-SD 54.3 fL; WBC 6.96 10^3/uL (4.4-10.8)
[2025-04-26 21:43] LABS: ALT 18 U/L (16-63); AST 18 U/L (15-37); Albumin 3.3 g/dL (3.4-5.0); Alkaline Phosphatase 133 U/L (46-116); BUN 34 mg/dL (7-18); CREATININE 1.5 mg/dL (0.70-1.30); Calcium 8.2 mg/dL (8.5-10.1); Chloride 108 mmol/L (98-107); Estimated GFR 45.34 (mL/min/1.73m2); Ferritin 53 ng/mL (26-388); Glucose 108 mg/dL (74-106); Sodium 143 mmol/L (136-145); Total Protein 6.1 g/dL (6.4-8.2)
[2025-04-26 21:59] LABS: Uric Acid 8.3 mg/dL (3.5-7.2)
== END 2025-04-26 16:59 | disposition home or self-care (01) ==
LOC: NCHCN 16:58
PROVIDERS: PCP Family Medicine; Visit Provider Family Medicine
DX: D64.9 Anemia, unspecified (principal); R60.9 Edema, unspecified
CPT/HCPCS: 80053; 82728; 84550; 85025

== ENCOUNTER 2025-04-28 10:38 | Outpatient (CLI) | payer MEDICARE, SELFPAY ==
[2025-04-28 10:38] LABS: Abs Immature Grans 0.02 10^3/uL (0.0-0.06); Absolute Basophil Count 0.08 10^3/uL (0.0-0.2); Absolute Eosinophil Count 0.46 10^3/uL (0.0-0.7); Absolute Lymphocyte Count 0.79 10^3/uL (1.2-3.4); Absolute Monocyte Count 0.24 10^3/uL (0.1-0.8); Absolute Neutrophil Count 4.88 10^3/uL (1.2-6.7); Basophils % 1.2 %; Eosinophils % 7.1 %; HCT 28.3 % (40.0-50.0); HGB 9.2 g/dL (13.5-17.5); Immature Grans % 0.3 %; Lymphocytes % 12.2 %; MCH 32.9 pg (27.0-33.0); MCHC 32.5 % (32.0-36.0); MCV 101 fL (80-95); MPV 10.3 fL (8.0-11.0); Monocytes % 3.7 %; Neutrophils % 75.5 %; Platelet Count 214 10^3/uL (130-400); RDW 14.5 % (11.8-14.1); RDW-SD 53.1 fL; WBC 6.47 10^3/uL (4.4-10.8)
== END 2025-04-28 10:39 | disposition home or self-care (01) ==
LOC: LBO 10:39
PROVIDERS: PCP Family Medicine; Visit Provider Family Medicine
DX: D64.9 Anemia, unspecified (principal)
CPT/HCPCS: 36415; 85025

== ENCOUNTER 2025-05-09 17:31 | Outpatient (REF) | payer MEDICARE, SELFPAY ==
[2025-05-09 21:16] LABS: HCT 29.7 % (40.0-50.0); HGB 9.5 g/dL (13.5-17.5); MCH 32.8 pg (27.0-33.0); MCV 102 fL (80-95); MPV 10.6 fL (8.0-11.0); Platelet Count 223 10^3/uL (130-400); RDW 13.6 % (11.8-14.1); RDW-SD 50.5 fL; WBC 6.84 10^3/uL (4.4-10.8)
[2025-05-09 21:23] LABS: Anion Gap 4.5 mmol/L (3-11); BUN 32 mg/dL (7-18); CO2 32.5 mmol/L (21.0-32.0); CREATININE 1.4 mg/dL (0.70-1.30); Calcium 8.4 mg/dL (8.5-10.1); Chloride 105 mmol/L (98-107); Estimated GFR 49.25 (mL/min/1.73m2); Glucose 107 mg/dL (74-106); Potassium 4.2 mmol/L (3.5-5.1); Sodium 142 mmol/L (136-145)
== END 2025-05-09 17:32 | disposition home or self-care (01) ==
LOC: NCHCN 17:31
PROVIDERS: PCP Family Medicine; Visit Provider Family Medicine
DX: K92.2 Gastrointestinal hemorrhage, unspecified (principal)
CPT/HCPCS: 80048; 85027

== ENCOUNTER 2025-06-17 13:32 | Emergency (ER) | payer MEDICARE, SELFPAY ==
[2025-06-17 13:35] VITALS: BP 131/70; PULSE 97; RESP 18; TEMP 36.6; O2SAT 94
--- NOTE | 2025-06-17 13:45 | DI.CT_ITS ---
Exam(s) CT LOWER EXTREMITY RT WO EXAM: CT LOWER EXTREMITY RT WO CLINICAL HISTORY: proximal right toe swelling, ?abscess. TECHNIQUE: Imaging Protocol: Axial computed tomography images with coronal and sagittal reformatted images were created and reviewed. CONTRAST MATERIAL: Noncontrast COMPARISON: CR XR FOOT RT COMPLETE from 03/10/2023 FINDINGS: Exam is limited by patient motion. Bones: There is no evidence of fracture or dislocation. Fractures of the phalanges are not excluded due to artifact.. No osteomyelitic changes are identified. There are in bony erosions noted in the 1st metatarsal head and base of 1st proximal phalanx. Erosions are also noted at the interphalangeal joint of the great toe. There is a smoothly marginated lucent area in the distal aspect of the proximal phalanx of the 2nd toe. Appears unchanged compared with the prior exam. Joints: There is mild 1st MTP joint hallux valgus. Mild joint space narrowing. Soft Tissues: Soft tissue calcifications are noted surrounding the 1st MTP joint for, 1st interphalangeal joint as well as 2nd toe. There is a small amount of calcification noted at adjacent to the 5th metatarsal head. The appearance is consistent with gouty tophi. Marked diffuse soft tissue swelling. No evidence of abscess or other drainable collection. Vascular calcifications. IMPRESSION: Findings consistent with gout at the 1st metatarsal-phalangeal joint and 1st and 2nd proximal interphalangeal joints with significant surrounding gouty tophi. Diffuse soft tissue swelling. No evidence of abscess or fracture. The preliminary [facility] report was reviewed. RADIATION DOSE DELIVERED: Total DLP DATA REPOSITORY: All CT scans at this facility are submitted to the National Radiology Data Registry (NRDR) Dose Index Registry (DIR) with the [employer] (A[employer]). RADIATION OPTIMIZATION: All CT scans at this facility use at least one of these dose optimization techniques: automated exposure control; mA and/or kV adjustment per patient size (includes targeted exams where dose is matched to clinical indication); or iterative reconstruction.
--- NOTE | 2025-06-17 14:05 | W.ED.GENAD ---
Discharge Plan Disposition Patient Disposition: Home Condition: Stable Discharge Details Clinical Impression: Gout, Cellulitis of foot, left Primary Care Provider: Fransisco Larios ED Provider: Jay Krueger Home Meds and New Rx's Prescriptions: New amoxicillin-pot clavulanate 875-125 mg tablet 1 tab PO BID Qty: 14 0RF prednisone 20 mg tablet See Rx Instructions .ROUTE .COMPLEX Qty: 18 0RF Rx Instructions: Take 3 tablets daily for 3 days, 2 tablets daily for 3 days, 1 tablet daily for 3 days Continued atenolol 25 MG tablet 12.5 mg PO DAILY furosemide 20 mg tablet 20 mg PO DAILY Patient Comments: TAKE 1 TABLET BY MOUTH ONCE DAILY. Pt states he's been taking x2 daily - advised by to increase dose d/t leg swelling 06/17/25 Xarelto 20 mg Tablet 20 mg PO DAILY meclizine 25 mg tablet 25 mg PO TID PRN (Reason: dizziness) Qty: 30 0RF Patient Comments: Pt states he has not taken in 4 years 06/17/25 atorvastatin 40 mg tablet 40 mg PO DAILY Qty: 30 0RF No Action aspirin 81 mg tablet,chewable 81 mg PO DAILY Qty: 30 0RF Patient Comments: Bleeding - on hold per [facility] 06/17/25 Discharge Instructions Additional Instructions: Take the antibiotic and prednisone as prescribed. If you are not improving within a week follow-up with your primary care provider. If you feel significantly more ill or have new symptoms such as high fevers return to the emergency department for reevaluation HPI General Date/Time Provider Initiated Documentation: 06/17/25 13:38. Limitations to Documentation: no limitations. Information obtained by: patient. History of Present Illness 85 year old M presents to the emergency department with the chief complaint of right foot drainage, described as mild, Quality is described as aching, Patient started experiencing this hour(s) (1) and it has been constant. No relieving factors improve symptom(s), No exacerbating factors reported . Patient notes no other symptoms.. Patient did receive the following treatments prior to arrival, none Related Data Home Medications ?Medication ?Instructions ?Recorded ?Confirmed atenolol 25 mg tablet 12.5 mg PO DAILY 06/25/18 06/17/25 rivaroxaban 20 mg tablet (Xarelto) 20 mg PO DAILY 08/03/21 06/17/25 aspirin 81 mg chewable tablet 81 mg PO DAILY #30 tabs 02/27/24 06/17/25 Held on 06/17/25. Instructions: Adverse Reaction atorvastatin 40 mg tablet 40 mg PO DAILY #30 tabs 02/27/24 06/17/25 meclizine 25 mg tablet 25 mg PO TID PRN dizziness #30 tabs 02/27/24 06/17/25 amoxicillin 875 mg-potassium 1 tab PO BID #14 tabs 06/17/25 clavulanate 125 mg tablet furosemide 20 mg tablet 20 mg PO DAILY 06/17/25 06/17/25 prednisone 20 mg tablet See Rx Instructions .Route 06/17/25 .COMPLEX #18 tabs Previous Rx's ?Medication ?Instructions ?Recorded aspirin 81 mg chewable tablet 81 mg PO DAILY #30 tabs 02/27/24 Held on 06/17/25. Instructions: Adverse Reaction atorvastatin 40 mg tablet 40 mg PO DAILY #30 tabs 02/27/24 meclizine 25 mg tablet 25 mg PO TID PRN dizziness #30 tabs 02/27/24 amoxicillin 875 mg-potassium 1 tab PO BID #14 tabs 06/17/25 clavulanate 125 mg tablet prednisone 20 mg tablet See Rx Instructions .Route 06/17/25 .COMPLEX #18 tabs Allergies Allergy/AdvReac Type Severity Reaction Status Date / Time erythromycin base Allergy Intermediate Skin Rash Unverified 06/17/25 13:39 Sulfa (Sulfonamide Allergy Intermediate Other (See Unverified 06/17/25 13:39 Antibiotics) Comment) ibuprofen AdvReac Intermediate Other (See Unverified 06/17/25 13:39 Comment) General Stated Complaint: Cellulitis SIMÓN: 3 Review of Systems All systems reviewed & are unremarkable except as noted in HPI and below Constitutional Constitutional: Denies chills, Denies fever(s) and Denies weakness Cardiovascular Cardiovascular: Denies chest pain and Denies dyspnea Respiratory Respiratory: Denies dyspnea Gastrointestinal Gastrointestinal: Denies abdominal pain, Denies nausea and Denies vomiting Musculoskeletal Musculoskeletal: Reports other (foot pain) Neurologic Neurologic: Denies weakness Exam Const General: no acute distress Orientation: alert HENMT Head: normal to inspection Ears: external ears normal General nose exam: external nose normal Mouth: moist mucous membranes Eyes General: appearance normal, both eyes and all related structures Neck Neck: normal visual inspection Resp Effort & Inspection: normal respiratory effort and able to speak in complete sentences Cardio Rate: regular rate Skin General skin exam: no erythema Neuro General: patient alert and patient oriented x3 Extrem General: full ROM Psych Mental Status: mental status grossly normal Course Vital Signs Vital signs: Vital Signs Temperature 36.6 C 06/17/25 13:35 Pulse 97 H 06/17/25 13:35 Respiratory Rate 18 06/17/25 13:35 Blood Pressure 131/70 06/17/25 13:35 Pulse Oximetry 94 06/17/25 13:35 Temperature 36.6 C 06/17/25 13:35 Temperature Source Oral 06/17/25 13:35 Pulse 97 H 06/17/25 13:35 Respiratory Rate 18 06/17/25 13:35 Blood Pressure 131/70 06/17/25 13:35 Pulse Oximetry 94 06/17/25 13:35 Oxygen Delivery Method Room Air 06/17/25 13:35 Oxygen Flow Rate 0 06/17/25 13:35 Pain Level 8 06/17/25 13:35 Medical Decision Making 85-year-old male with a history of hypertension, A-fib on Xarelto who comes in with chronic proximal right toe swelling and today states he had some drainage so came here for an evaluation. He says he otherwise feels okay and denies any symptoms such as fevers, chills or severe pain. He states he has had chronic issues with the proximal right big toe being swollen and is not sure if it is actually worse than his baseline. He does have swelling on the plantar surface just proximal to the right big toe. He has a half a centimeter what appears to be a scab in this area. There is swelling in the area without significant erythema. He has intact sensation and cap refill. I suspect chronic gout or pseudogout, I will check a CBC inflammatory markers and CMP and also CT to evaluate for possible abscess. Labs reassuring other than mildly elevated sed rate, normal white count and CRP. CT shows no evidence of abscess, does have evidence of gout, cannot exclude cellulitis. Patient is stable and states his foot feels better now. Unclear if this is a cellulitis versus gout flare. I am going to start him on Augmentin and prednisone. 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
[2025-06-17 14:19] LABS: Abs Immature Grans 0.01 10^3/uL (0.0-0.06); HCT 29.8 % (40.0-50.0); HGB 9.7 g/dL (13.5-17.5); Immature Grans % 0.1 %; MCH 31.5 pg (27.0-33.0); MCHC 32.6 % (32.0-36.0); MCV 97 fL (80-95); MPV 9.9 fL (8.0-11.0); Platelet Count 204 10^3/uL (130-400); RBC 3.08 10^6/uL (4.36-5.78); RDW 13.7 % (11.8-14.1); RDW-SD 48.4 fL; WBC 7.22 10^3/uL (4.4-10.8)
[2025-06-17 14:23] LABS: ESR 31 mm/hr (0-20)
[2025-06-17 14:29] VITALS: BP 131/70; PULSE 97; RESP 18; TEMP 36.6; O2SAT 94
[2025-06-17 14:35] LABS: ALT 16 U/L (16-63); AST 15 U/L (15-37); Albumin 3.0 g/dL (3.4-5.0); Alkaline Phosphatase 130 U/L (46-116); Anion Gap 4.9 mmol/L (3-11); BUN 33 mg/dL (7-18); Bilirubin, Total 1.1 mg/dL (0.2-1.0); CO2 32.1 mmol/L (21.0-32.0); Calcium 8.5 mg/dL (8.5-10.1); Chloride 104 mmol/L (98-107); Estimated GFR 53.84 (mL/min/1.73m2); Glucose 125 mg/dL (74-106); Magnesium 2.2 mg/dL (1.8-2.4); Potassium 4.1 mmol/L (3.5-5.1); Sodium 141 mmol/L (136-145); Total Protein 6.5 g/dL (6.4-8.2)
[2025-06-17 14:41] LABS: C-Reactive Protein < 0.50 mg/dL (<or=0.5)
--- NOTE | 2025-06-17 16:45 | DI.VRAD_ITS ---
PROCEDURE INFORMATION: Exam: CT Right Lower Extremity Without Contrast, Foot Exam date and time: 06/17/2025 3:09 PM Age: 85 years old Clinical indication: Cellulitis and swelling, leg or foot; Proximal right toe swelling, ? abscess TECHNIQUE: Imaging protocol: CT of the right lower extremity without contrast was performed. Exam focused on the foot. COMPARISON: CR XR FOOT RT COMPLETE 03/10/2023 10:45 AM FINDINGS: Bones/joints: There are significant periarticular heterotopic calcifications, possible tophi at the 1st MTP level. There are present to a lesser extent involving the great toe and 2nd toe. Next lines there is fairly significant, diffuse subcutaneous edema. There are degenerative changes at the 1st MTP level with some erosive change at the PIP level of the 2nd toe. Soft tissues: See Bones/joints finding. Vasculature: Atherosclerotic change noted in the vasculature. IMPRESSION: Soft tissue calcifications and bony changes as noted, probable gout. Cellulitis not excludable. No drainable collection identified. Dictated and Authenticated by: Sintia Zavala MD. Orderin Evans Thompson MD
[2025-06-17 16:55] VITALS: PULSE 89; RESP 18; TEMP 36.6; O2SAT 95
[2025-06-17] MEDS: predniSONE 20 MG TAB 60 MG PO (17:03)
[2025-06-17] MEDS: Amox. 875/Clav. 125, 2 TABS/BTL 1 TAB PO (17:03)
== END 2025-06-17 16:55 | disposition home or self-care (01) ==
PROVIDERS: Emergency Provider Emergency Medicine; PCP Family Medicine
DX: M1A.9XX1 Chronic gout, unspecified, with tophus (tophi) (principal); L03.116 Cellulitis of left lower limb; I48.91 Unspecified atrial fibrillation; I10 Essential (primary) hypertension; E03.9 Hypothyroidism, unspecified; Z79.01 Long term (current) use of anticoagulants; Z79.82 Long term (current) use of aspirin; Z86.73 Personal history of transient ischemic attack (TIA), and cerebral infarction without residual deficits
CPT/HCPCS: 36415; 80053; 85652; 99284; 73700; 83735; 85025; 86140; J7512

== ENCOUNTER → 2025-07-26 13:57 | Outpatient (BNVA) | payer MEDICARE, SELFPAY | PROVIDERS: PCP Family Medicine; Referring Provider Family Medicine; Visit Provider Podiatrist | DX: M1A.9XX1 Chronic gout, unspecified, with tophus (tophi) (principal); L97.511 Non-pressure chronic ulcer of other part of right foot limited to breakdown of skin; I87.2 Venous insufficiency (chronic) (peripheral); N18.30 Chronic kidney disease, stage 3 unspecified | CPT/HCPCS: 99213 ==